=== PATIENT | female | born 1950 | race Caucasian/White ===

== ENCOUNTER 2020-03-03 14:12 | Emergency (ER) | payer MEDICARE, MEDICAID ==
[~2020-03-03] VITALS: Ht 160 cm; Wt 59.0 kg
[~2020-03-03 14:12] MED LIST: ARICEPT10 MG ORAL; ASPIRIN81 MG ORAL; ATIVAN0.5 MG ORAL; CEPHALEXIN500 MG ORAL; DOCUSATE SODIU100 MG ORAL; HALDOL5 MG ORAL; HEPARIN1000 UNIT/ SUBQ; MYLANTA30 M1 PO; NAMENDA10 MG ORAL; PULMICORT1 EA HHN; QUETIAPINE FUM100 MG ORAL; RANITIDINE HCL150 MG ORAL; ROBITUSSIN AC5 ML ORAL; SEROQUEL25 MG ORAL; TRILEPTAL150 MG ORAL; TYLENOL650 MG/20. ORAL; VITAMIN D PO; VITAMIN D1000 UNI1 ORAL; VITAMIN D3 PO; WELLBUTRIN SR100 MG ORAL; ZOFRAN4 M1 ORAL
--- NOTE | 2020-03-03 14:28 | Emergency Room Report ---
History of Present Illness General Chief Complaint: Skin Rash/Abscess Source: Patient, EMS Present Illness HPI Patient presents with redness and swelling to her left lower extremity. This is been going on for 3 days. She structures shoulders when I ask about pain. She does remember ever having this before. She does have a distant history of DVT according to her although it is unclear where and when. She denies fevers or chills. She denies shortness of breath, chest pain, hemoptysis or productive cough. She denies nausea, vomiting diarrhea and dysuria. The patient denies any trauma. Patient comes from assisted living. She has a history of seizures, dementia and schizophrenia. She takes Trileptal and Ativan for the seizures. She is on multiple psychiatric medications and medication for Alzheimer's. Due to these concurrent problems her answers to review of systems are somewhat questionable. She was last admitted in 2016 with these discharge diagnoses: 1. Acute bronchitis. 2. Acute chronic obstructive pulmonary disease exacerbation. 3. Possible pneumonia. 4. Left base pulmonary nodule. 5. History of smoking. 6. Dementia. 7. Possible urinary tract infection. Allergies: Coded Allergies: No Known Allergies (Unverified , 08/08/14) COVID-19 Screening Contact w/high risk pt: No Experienced COVID-19 symptoms?: No COVID-19 Testing performed [employer]: Yes COVID-19 Screening: Negative COVID-19 COVID-19 Testing Source: 02/15/20 Patient History Limited by: medical condition - Dementia, schizophrenia and history of encephalopathy Past Medical History: see triage record, old chart reviewed Social History: Reports: alcohol use - In the past; Denies: smoking - Denied by patient even though patient has a history of COPD, drug use Social History Narrative Oswald Sam Reviewed Nursing Documentation: PMH: Agreed; PSxH: Agreed Nursing Documentation-PMH Hx Cardiac Problems: No Hx Pacemaker: No - ANEMIA Hx COPD: Yes Hx Cancer: No Hx Gastrointestinal Problems: No - AKF Hx Neurological Problems: Yes - muscle weakness Hx Dementia: Yes Hx Alzheimer's Disease: Yes Hx Seizures: Yes Hx Weakness: Yes Review of Systems All Other Systems: negative except mentioned in HPI - Questionable responses from patient Physical Exam Vital Signs Date Time Temp Pulse Resp B/P (MAP) Pulse Ox O2 Delivery O2 Flow Rate FiO2 03/03/20 14:07 98.4 67 14 105/67 (80) 97 Room Air Sp02 EP Interpretation: reviewed, normal General Appearance: well appearing, no apparent distress, GCS 15, thin Head: normocephalic Eyes: bilateral eye normal inspection, bilateral eye PERRL, bilateral eye EOMI ENT: other - Wearing a mask Neck: full range of motion, supple Respiratory: lungs clear, normal breath sounds Cardiovascular #1: regular rate, rhythm Cardiovascular #2: 2+ radial (R), 2+ dorsalis pedis (L) Gastrointestinal: normal inspection, normal bowel sounds, non tender, no mass, non-distended Genitourinary: no CVA tenderness Musculoskeletal: back normal, normal range of motion, no calf tenderness, swelling - Left lower leg Neurologic: alert, motor strength/tone normal, oriented - X2, sensory intact Psychiatric: mood/affect normal, other - Flat affect Skin: warm/dry, other - Erythematous area left anterior lateral tibia Medical Decision Making Diagnostic Impression: Primary Impression: Cellulitis of left leg Additional Impressions: Pulmonary nodule UTI (urinary tract infection) Qualified Codes: N30.00 - Acute cystitis without hematuria ER Course Patient presents with left lower leg erythema and swelling. Differential includes cellulitis, DVT, superficial phlebitis, other type of rash amongst others. Patient evaluated with EKG, chest x-ray, Doppler exam of left lower extremity and labs. Depending on results patient may need treatment if this appears to be more infective. Patient not exhibiting signs of pulmonary embolus or Covid. Patient given tetanus. EKG NSR RBBB. CXR no infiltrates, Normal WBC. Slightly elevated BUN. Slightly elevated BNP. D-dimer minimally elevated. Venous duplex negative for DVT. Nitrite + without pyuria. Will be covered with Bactrim. Clinical diagnosis most likely cellulitis. Bactrim should cover possible MRSA. Also bacitracin will help. Patient in no distress with no apparent medical emergency. Patient stable for outpatient observation and treatment. Laboratory Tests Test 03/03/20 15:41 03/03/20 16:53 White Blood Count 4.7 K/UL (4.8-10.8) L Red Blood Count 3.45 M/UL (4.20-5.40) L Hemoglobin 11.4 G/DL (12.0-16.0) L Hematocrit 30.8 % (37.0-47.0) L Mean Corpuscular Volume 89 FL (80-99) Mean Corpuscular Hemoglobin 33.1 PG (27.0-31.0) H Mean Corpuscular Hemoglobin Concent 37.1 G/DL (32.0-36.0) H Red Cell Distribution Width 11.8 % (11.6-14.8) Platelet Count 144 K/UL (150-450) L Mean Platelet Volume 6.1 FL (6.5-10.1) L Neutrophils (%) (Auto) 58.4 % (45.0-75.0) Lymphocytes (%) (Auto) 28.2 % (20.0-45.0) Monocytes (%) (Auto) 7.5 % (1.0-10.0) Eosinophils (%) (Auto) 5.0 % (0.0-3.0) H Basophils (%) (Auto) 0.9 % (0.0-2.0) Prothrombin Time 10.3 SEC (9.30-11.50) Prothrombin Time INR 0.9 (0.9-1.1) Activated Partial Thromboplast Time 26 SEC (23-33) D-Dimer 0.60 mg/L FEU (0.00-0.49) H Sodium Level 138 MMOL/L (136-145) Potassium Level 4.2 MMOL/L (3.5-5.1) Chloride Level 106 MMOL/L (98-107) Carbon Dioxide Level 29 MMOL/L (21-32) Anion Gap 3 mmol/L (5-15) L Blood Urea Nitrogen 27 mg/dL (7-18) H Creatinine 0.8 MG/DL (0.55-1.30) Estimated Glomerular Filtration Rate > 60 mL/min (>60) Glucose Level 100 MG/DL (74-106) Calcium Level 9.5 MG/DL (8.5-10.1) Ferritin 250 NG/ML (8-388) Total Bilirubin 0.8 MG/DL (0.2-1.0) Aspartate Amino Transferase (AST) 15 U/L (15-37) Alanine Aminotransferase (ALT) 17 U/L (12-78) Alkaline Phosphatase 75 U/L (46-116) Lactate Dehydrogenase 160 U/L (81-234) Total Creatine Kinase 65 U/L (26-308) Troponin I 0.006 ng/mL (0.000-0.056) C-Reactive Protein, Quantitative 5.1 mg/dL (0.00-0.90) H Pro-B-Type Natriuretic Peptide 386 pg/mL (0-125) H Total Protein 7.0 G/DL (6.4-8.2) Albumin 3.3 G/DL (3.4-5.0) L Globulin 3.7 g/dL Albumin/Globulin Ratio 0.9 (1.0-2.7) L Lipase 132 U/L (73-393) Urine Color Yellow Urine Appearance Slightly cloudy Urine pH 6 (4.5-8.0) Urine Specific [place] 1.020 (1.005-1.035) Urine Protein 1+ (NEGATIVE) H Urine Glucose (UA) Negative (NEGATIVE) Urine Ketones Negative (NEGATIVE) Urine Blood 1+ (NEGATIVE) H Urine Nitrite Positive (NEGATIVE) H Urine Bilirubin Negative (NEGATIVE) Urine Urobilinogen Normal MG/DL (0.0-1.0) Urine Leukocyte Esterase 1+ (NEGATIVE) H Urine RBC /HPF (0 - 2) Urine WBC /HPF (0 - 2) Urine Squamous Epithelial Cells /LPF (NONE/OCC) Urine Bacteria /HPF (NONE) EKG Diagnostic Results Rate: normal Rhythm: NSR ST Segments: no acute changes - RBBB Rhythm Strip Diag. Results EP Interpretation: yes Rhythm: NSR, no PVC's, no ectopy Chest X-Ray Diagnostic Results Chest X-Ray Diagnostic Results : Chest X-Ray Ordered: Yes # of Views/Limited/Complete: 1 View Indication: Other EP Interpretation: Yes Interpretation: no consolidation, no effusion, no pneumothorax, other - L nodule. According to radiologist, this is larger and needs CT in the future Impression: Other CT/MRI/US Diagnostic Results CT/MRI/US Diagnostic Results : Imaging Test Ordered: Left leg venous duplex Impression No DVT Last Vital Signs Date Time Temp Pulse Resp B/P (MAP) Pulse Ox O2 Delivery O2 Flow Rate FiO2 03/03/20 21:52 98.4 78 15 110/68 99 Room Air Status: improved Disposition: ASSISTED LIVING Condition: Improved Scripts Bacitracin (Bacitracin) 28.4 Gm Oint...g. 1 APPLIC TOPIC BID, #20 GM Prov: Wes Subramanian MD 03/03/20 Trimethoprim/Sulfamethoxazole 160/800* (BACTRIM DS TABLET*) 1 Each Tablet 1 TAB ORAL Q12H, #14 TAB 0 Refills Prov: Wes Subramanian MD 03/03/20 Wes Subramanian MD Mar 03, 2020 14:28
[2020-03-03 16:00] VITALS: BP 105/67
[2020-03-03 16:45] LABS: BASOPHILS % (AUTO) 0.9 % (0.0-2.0); HEMATOCRIT 30.8 % (37.0-47.0); HEMOGLOBIN 11.4 G/DL (12.0-16.0); LYMPHOCYTES % (AUTO) 28.2 % (20.0-45.0); MEAN CORPUSCULAR VOLUME 89 FL (80-99); MONOCYTES % (AUTO) 7.5 % (1.0-10.0); NEUTROPHILS % (AUTO) 58.4 % (45.0-75.0); PLATELET COUNT 144 K/UL (150-450); RED BLOOD COUNT 3.45 M/UL (4.20-5.40); RED CELL DISTRIBUTION WIDTH 11.8 % (11.6-14.8); WHITE BLOOD COUNT 4.7 K/UL (4.8-10.8)
[2020-03-03 16:46] LABS: ANION GAP 3 mmol/L (5-15); BLOOD UREA NITROGEN 27 mg/dL (7-18); CALCIUM 9.5 MG/DL (8.5-10.1); CARBON DIOXIDE 29 MMOL/L (21-32); CHLORIDE 106 MMOL/L (98-107); CREATININE 0.8 MG/DL (0.55-1.30); POTASSIUM 4.2 MMOL/L (3.5-5.1); SODIUM 138 MMOL/L (136-145)
--- NOTE | 2020-03-03 16:50 | Diagnostic Imaging Report ---
Indication: Reason For Exam: PAIN unchanged in appearance. Technique: Single AP view of the chest. Comparison: Chest radiograph Dated 04/17/2015 Findings: The cardiomediastinal silhouette is unchanged in appearance. No airspace consolidation. Mild pulmonary vascular congestion. No pneumothorax or pleural effusion. No acute osseous abnormality. Nodular density in the left lower lung has increased in size since prior examination. IMPRESSION: 1. Pulmonary vascular congestion without air space consolidation. 2. Interval increase in left basilar nodular opacity suspicious for enlarging pulmonary nodule. Comparison with more recent chest radiograph or follow-up with chest CT on nonemergent basis is recommended. Findings reported to Dr. Subramanian at 1640 on 03/03/2020
[2020-03-03 16:51] LABS: INR 0.9 (0.9-1.1)
[2020-03-03 17:04] LABS: ALANINE AMINOTRANSFERASE 17 U/L (12-78); ALBUMIN 3.3 G/DL (3.4-5.0); ALBUMIN/GLOBULIN RATIO 0.9 (1.0-2.7); ALKALINE PHOSPHATASE 75 U/L (46-116); ASPARTATE AMINO TRANSFERASE 15 U/L (15-37); BILIRUBIN,TOTAL 0.8 MG/DL (0.2-1.0); CREATINE KINASE 65 U/L (26-308); FERRITIN 250 NG/ML (8-388); LACTATE DEHYDROGENASE 160 U/L (81-234)
--- NOTE | 2020-03-03 17:08 | Diagnostic Imaging Report ---
Indication:Leg pain and swelling Technique: Grayscale and duplex Doppler imaging of the veins knee left lower femoral performed in real time utilizing compression and augmentation. Comparison: None Findings: Duplex Doppler interrogation of the veins in the left lower extremity is performed from the common femoral vein to the popliteal vein. Normal venous compressibility demonstrated throughout. No thrombus identified. Waveform analysis shows good respiratory phasicity and augmentation. IMPRESSION: No evidence of deep venous thrombosis involving the left lower extremity
[2020-03-03] MEDS ORDERED: Bactrim-DS 1 tab ORAL ONE (17:45)
[2020-03-03] MEDS ORDERED: Tetanus/Diptheria/Pertussis IM ONE (17:45)
[2020-03-03] MEDS ORDERED: Bacitracin Oint UD TOPIC ONE (17:45)
[2020-03-03 17:46] LABS: BILIRUBIN, URINE NEGATIVE (NEGATIVE); GLUCOSE, URINE (UA) NEGATIVE (NEGATIVE); KETONES,URINE NEGATIVE (NEGATIVE); LEUKOCYTE ESTERASE ,URINE 1+ (NEGATIVE); NITRITE,URINE POSITIVE (NEGATIVE); PH,URINE 6 (4.5-8.0); PROTEIN,URINE 1+ (NEGATIVE); UROBILINOGEN,URINE NORMAL MG/DL (0.0-1.0)
[2020-03-03] MEDS ORDERED: BACITRACIN15 GM TOPIC (17:47)
[2020-03-03] MEDS ORDERED: BACTRIM DS TAB1 EAC1 ORAL (17:47)
[2020-03-03 18:29] LABS: COLOR,URINE YELLOW
[2020-03-03 18:31] LABS: APPEARANCE,URINE SLIGHTLY CLOUDY
[2020-03-03 21:52] VITALS: BP 110/68
== END 2020-03-03 21:52 | disposition home or self-care (01) ==
LOC: EDBD 14:12 → EMR 14:58
DX: L03.116 Cellulitis of left lower limb (principal); R91.1 Solitary pulmonary nodule; N30.00 Acute cystitis without hematuria; J44.9 Chronic obstructive pulmonary disease, unspecified; G30.9 Alzheimer's disease, unspecified; F02.80 Dementia in other diseases classified elsewhere, unspecified severity, without behavioral disturbance, psychotic disturbance, mood disturbance, and anxiety; G40.909 Epilepsy, unspecified, not intractable, without status epilepticus; Z79.899 Other long term (current) drug therapy
CPT/HCPCS: 36415; 71045; 80053; 81003; 82550; 82728; 83615; 83690; 83880; 84484; 85025; 85379; 85610; 85730; 86140; 87086; 90471; 90715; 93005; 93971; 99284